=== PATIENT | male | born 1980 | race Caucasian/White ===

== ENCOUNTER 2018-03-31 08:31 | Emergency (ER) | payer SELFPAY ==
[2018-03-31 08:31] VITALS: PULSE 65; RESP 20; TEMP 36.3; BMI 18.3
[2018-03-31 08:36] VITALS: BP 135/81
--- NOTE | 2018-03-31 08:53 | ED.VISSUMM ---
- ER Visit Summary Date of Service: 03/31/18 Chief Complaint: Back pain History of Present Illness: The patient is a 37 M with no primary care physician. 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 He describes it as a pressure that is 10 out of 10 with movement 5 out of 10 when he lays down. Is taking Excedrin, use ice packs, taking hot showers with minimal relief. No radiation to his legs. No numbness or weakness in his legs. No problems with his bowels or his bladder. No groin numbness. No fever or chills. No red flags. Physical Examination: Vitals: Stable. Afebrile. General: A&O x 3. NAD. Cardiovascular exam: Regular rate and rhythm, no murmur, rub or gallop. Respiratory exam: Clear to auscultation bilaterally. No wheezes or stridor. Abdominal exam: Soft, nontender, nondistended, normal bowel sounds. No peritoneal signs. Back: Diffuse moderate tenderness to palpation over the lumbar spine and the paraspinous musculature in the lumbar region. No point tenderness. Negative straight leg bilaterally. 5/5 DF, PF, EHL bilaterally. Normal sensation to light touch throughout. Extremity: No clubbing, cyanosis, or edema. Emergency Department Course and Treatment: An [facility] report was obtained which was negative. He was treated with naproxen and oxycodone. Treatment Plan: Patient will be discharged naproxen and 12 Percocet. Instructed to follow-up with the [facility] in 1 week if not improving. Return to the emergency department for any worsening symptoms. Disposition: To home in improved and stable condition. Impression: 1. Low back pain, acute. This note was generated with dough dictation software. It may contain incorrect words, spelling, and punctuation that were not noted in review of the chart prior to signing ED Disposition - Plan for ED Patient: Chief Complaint: Back Instructions: ED Spasm Back No Trauma Prescriptions: Oxycodone HCl/Acetaminophen [Percocet 5/325] 1 tablet PO Q6H PRN PRN 3 Days #12 tablet PRN Reason: Pain Naproxen [Naprosyn] 500 mg PO BID #14 tablet Referrals: [facility] [NON-STAFF] - 1 Week if not improving
[2018-03-31] MEDS: oxyCODONE 5 MG Tablet 10 MG PO (09:01)
[2018-03-31] MEDS: Naproxen 250 MG Tablet 500 MG PO (09:01)
[2018-03-31 09:13] VITALS: BP 140/88; PULSE 84; RESP 18; O2SAT 98
== END 2018-03-31 09:14 | disposition home or self-care (01) ==
PROVIDERS: Emergency Provider Emergency Medicine
DX: M54.5 Low back pain (principal); Z72.0 Tobacco use
CPT/HCPCS: 99283